=== PATIENT | male | born 1955 | race Caucasian/White ===

== ENCOUNTER 2021-08-05 04:39 | Emergency (ER) | payer OTHER ==
[2021-08-05 05:15] VITALS: BP 120/79; PULSE 70; TEMP 98.1; BMI 22.0
== END 2021-08-05 07:12 | disposition home or self-care (01) ==
LOC: JER 04:39
DX: S80.912A Unspecified superficial injury of left knee, initial encounter (principal); W01.0XXA Fall on same level from slipping, tripping and stumbling without subsequent striking against object, initial encounter
CPT/HCPCS: 73560-TC-LT-FY; 99283-25

== ENCOUNTER 2021-10-09 17:05 | Inpatient (IN) | payer OTHER ==
[2021-10-09 18:47] VITALS: BMI 21.2
[2021-10-09] MEDS ORDERED: ACETAMINOPHEN 325 MG TABLET (FP) PO PRN ×2 (21:22)
[2021-10-09] MEDS ORDERED: NICOTINE POLACRILEX 2 MG GUM BUC PRN (21:22)
[2021-10-09] MEDS ORDERED: DICYCLOMINE HCL 10 MG CAPSULE PO PRN (21:22)
[2021-10-09] MEDS ORDERED: LOPERAMIDE HCL 2 MG CAPSULE PO PRN (21:22)
[2021-10-09] MEDS ORDERED: IBUPROFEN 600 MG TABLET (FP) PO PRN (21:22)
[2021-10-09] MEDS ORDERED: guaiFENesin 200 MG/10 ML 10 ML UNIT-DOSE CUPS PO PRN (21:22)
[2021-10-09] MEDS ORDERED: P-EPHED 60MG/TRIPROLIDI 2.5MG TABLET PO PRN (21:22)
[2021-10-09] MEDS ORDERED: MAGNESIUM CITRATE 300 ML BOTTLE PO PRN (21:22)
[2021-10-09] MEDS ORDERED: LORazepam 1 MG TABLET PO PRN (21:22)
[2021-10-09] MEDS ORDERED: BENZOCAINE/MENTHOL (CHLORASEPTIC ) LOZENGE MM PRN (21:22)
[2021-10-09] MEDS ORDERED: BISMUTH SUBSALICYLATE 524 MG/30 ML PO PRN (21:22)
[2021-10-09] MEDS ORDERED: IBUPROFEN 400 MG TABLET (FP) PO PRN (21:22)
[2021-10-09] MEDS ORDERED: ONDANSETRON *ODT* 4 MG TABLET SL PRN (21:22)
[2021-10-09] MEDS ORDERED: MAGNESIUM HYDROX 2400MG/30ML ORAL SUSPENSION 30 ML CUP PO PRN (21:22)
[2021-10-09] MEDS ORDERED: MAG HYDROX/AL HYDROX/SIMETH 30 ML UNIT-DOSE CUP PO PRN (21:22)
[2021-10-09] MEDS: LORazepam 2 MG TABLET PO SCH (23:32)
[2021-10-09] MEDS: THIAMINE HCL 100 MG TABLET (FP) PO SCH (23:33)
[2021-10-09] MEDS: MELATONIN 5 MG TABLETS PO SCH (23:37)
[2021-10-10] MEDS: LORazepam 2 MG TABLET PO SCH ×4 (05:43→22:41)
[2021-10-10] MEDS: NICOTINE 21 MG/24 HOURS TOPICAL PATCH TD SCH (10:25)
[2021-10-10] MEDS: PRENATAL VITAMINS W/ FOLIC ACID TABLET (FP) PO SCH (10:25)
[2021-10-10] MEDS: METHOCARBAMOL 500 MG TABLET PO PRN (10:26)
[2021-10-10 15:37] LABS: BLOOD UREA NITROGEN 14.8 mg/dL (7-18); CALCIUM 8.9 mg/dL (8.5-10.1)
[2021-10-10 15:38] LABS: HEMATOCRIT 43.8 % (35.4-49); HEMOGLOBIN 14.8 GM/dL (11.7-16.9); MCHC 33.8 g/dl (32.0-35.9); MEAN CELL VOLUME 91.7 fl (80-96); MEAN PLT VOLUME 8.4 fl (7.5-11.1); PLATELET COUNT 322 10^3/uL (134-434); RBC 4.78 M/mm3 (4.00-5.60); RDW 14.6 % (11.9-15.9); WHITE BLOOD COUNT 8.2 K/mm3 (4.0-10.0)
[2021-10-10 15:40] LABS: CREATININE 0.9 mg/dL (0.55-1.3)
[2021-10-10 15:42] LABS: BILIRUBIN,TOTAL 0.6 mg/dL (0.2-1); TOT PROT 5.8 g/dl (6.4-8.2)
[2021-10-10] MEDS: THIAMINE HCL 100 MG TABLET (FP) PO SCH (22:41)
[2021-10-10] MEDS: MELATONIN 5 MG TABLETS PO SCH (22:41)
[2021-10-11] MEDS: LORazepam 1 MG TABLET PO SCH ×3 (05:31→17:55)
[2021-10-11] MEDS ORDERED: amLODIPine BESYLATE 5 MG TABLET (FP) PO SCH (10:00)
[2021-10-11] MEDS: METHOCARBAMOL 500 MG TABLET PO PRN (10:31)
[2021-10-11] MEDS: NICOTINE 21 MG/24 HOURS TOPICAL PATCH TD SCH (10:33)
[2021-10-11] MEDS: PRENATAL VITAMINS W/ FOLIC ACID TABLET (FP) PO SCH (10:35)
[2021-10-11 13:59] VITALS: PULSE 85
[2021-10-11 19:26] VITALS: BP 145/72; RESP 17; TEMP 97.5
[2021-10-12] MEDS ORDERED: LORazepam 0.5 MG TABLET PO PRN
[2021-10-12] MEDS ORDERED: LORazepam 0.5 MG TABLET PO SCH (05:00)
[2021-10-13] MEDS ORDERED: LORazepam 0.5 MG TABLET PO ONE (05:00)
== END 2021-10-11 19:35 | disposition left against medical advice (07) | DRG 894 ==
LOC: YASAS 17:05 → Y6N 21:34
PROVIDERS: ADMIT Allergy & Immunology; ATTEND Surgery
PROC: HZ2ZZZZ Detoxification Services for Substance Abuse Treatment (ICD-10-PCS; principal; 2021-10-09)
DX: F10.230 Alcohol dependence with withdrawal, uncomplicated (principal); F10.24 Alcohol dependence with alcohol-induced mood disorder; F25.9 Schizoaffective disorder, unspecified; F31.9 Bipolar disorder, unspecified; Z56.0 Unemployment, unspecified
CPT/HCPCS: 36415; 80053; 85027; 86780; 87811; 93005; 93010; C9803-CS; U0003; U0005

== ENCOUNTER 2022-03-25 11:06 | Observation (INO) | payer OTHER ==
[2022-03-25] MEDS ORDERED: ACETAMINOPHEN 325 MG TABLET (FP) PO ONE (11:46)
[2022-03-25] MEDS ORDERED: ACETAMINOPHEN 325 MG TABLET (FP) ONE ×2 (11:56→12:00)
[2022-03-25 16:40] LABS: BASO % 0.8 % (0-2.0); EOS % 3.6 % (0-4.5); HEMATOCRIT 45.7 % (35.4-49); HEMOGLOBIN 16.2 GM/dL (11.7-16.9); LYMPH % 20.8 % (8-40); MCHC 35.4 g/dl (32.0-35.9); MEAN CELL VOLUME 87.6 fl (80-96); MEAN PLT VOLUME 7.6 fl (7.5-11.1); MONO % 11.1 % (3.8-10.2); NEUT % 63.7 % (42.8-82.8); PLATELET COUNT 353 10^3/uL (134-434); RBC 5.21 M/mm3 (4.00-5.60); RDW 14.4 % (11.9-15.9); WHITE BLOOD COUNT 7.6 K/mm3 (4.0-10.0)
[2022-03-25 17:07] LABS: CALCIUM 9.3 mg/dL (8.5-10.1)
[2022-03-25 17:09] LABS: ALBUMIN 3.3 g/dl (3.4-5.0); BLOOD UREA NITROGEN 13.3 mg/dL (7-18)
[2022-03-25 17:11] LABS: CREATININE 0.8 mg/dL (0.55-1.3)
[2022-03-25 17:13] LABS: BILIRUBIN,TOTAL 0.6 mg/dL (0.2-1); TOT PROT 6.6 g/dl (6.4-8.2)
[2022-03-25] MEDS ORDERED: NICOTINE 14 MG/24 HOURS TOPICAL PATCH TD ONE (20:25)
[2022-03-25] MEDS: NICOTINE 14 MG/24 HOURS TOPICAL PATCH TD SCH (20:37)
[2022-03-25] MEDS: SODIUM CHLORIDE 1 GM TABLET PO SCH (23:01)
[2022-03-26 07:55] VITALS: BMI 21.2
[2022-03-26 09:40] LABS: BLOOD UREA NITROGEN 12.9 mg/dL (7-18); CALCIUM 9.1 mg/dL (8.5-10.1)
[2022-03-26 09:43] LABS: CREATININE 0.7 mg/dL (0.55-1.3)
[2022-03-26] MEDS: amLODIPine BESYLATE 5 MG TABLET (FP) PO SCH (10:34)
[2022-03-26] MEDS: NICOTINE 14 MG/24 HOURS TOPICAL PATCH TD SCH (10:34)
[2022-03-26] MEDS: TAMSULOSIN HCL 0.4 MG CAP PO SCH (10:34)
[2022-03-26] MEDS: SODIUM CHLORIDE 1 GM TABLET PO SCH ×2 (10:34→22:51)
[2022-03-26] MEDS: ENOXAPARIN NA (PORCINE) 40 MG/0.4 ML DISP.SYRIN SQ SCH (10:35)
[2022-03-27] MEDS: TAMSULOSIN HCL 0.4 MG CAP PO SCH (08:46)
[2022-03-27] MEDS: SODIUM CHLORIDE 1 GM TABLET PO SCH ×2 (09:16→21:11)
[2022-03-27] MEDS: amLODIPine BESYLATE 5 MG TABLET (FP) PO SCH (09:16)
[2022-03-27] MEDS: NICOTINE 14 MG/24 HOURS TOPICAL PATCH TD SCH (09:17)
[2022-03-27] MEDS: ENOXAPARIN NA (PORCINE) 40 MG/0.4 ML DISP.SYRIN SQ SCH (09:17)
[2022-03-28] MEDS: TAMSULOSIN HCL 0.4 MG CAP PO SCH (09:04)
[2022-03-28] MEDS: amLODIPine BESYLATE 5 MG TABLET (FP) PO SCH (09:04)
[2022-03-28] MEDS: SODIUM CHLORIDE 1 GM TABLET PO SCH ×2 (09:05→22:26)
[2022-03-28] MEDS: ENOXAPARIN NA (PORCINE) 40 MG/0.4 ML DISP.SYRIN SQ SCH (09:05)
[2022-03-28] MEDS: NICOTINE 14 MG/24 HOURS TOPICAL PATCH TD SCH (09:05)
[2022-03-29] MEDS: TAMSULOSIN HCL 0.4 MG CAP PO SCH (08:29)
[2022-03-29] MEDS: SODIUM CHLORIDE 1 GM TABLET PO SCH (09:35)
[2022-03-29] MEDS: NICOTINE 14 MG/24 HOURS TOPICAL PATCH TD SCH (09:35)
[2022-03-29] MEDS: amLODIPine BESYLATE 5 MG TABLET (FP) PO SCH (09:35)
[2022-03-29] MEDS: ENOXAPARIN NA (PORCINE) 40 MG/0.4 ML DISP.SYRIN SQ SCH (09:35)
[2022-03-29 15:37] VITALS: BP 109/69; PULSE 87; RESP 18; TEMP 98.7
== END 2022-03-29 18:53 ==
LOC: JER 11:06 → UNDOADMOB 14:50 → JERBED 14:50 → INTOOBSV 14:50 → J8W 03-26 00:11 → JERBED 03-26 00:11 → J8W 03-26 09:37 → JERBED 03-26 09:37
PROVIDERS: ADMIT Internal Medicine; ATTEND Internal Medicine
PROC: 3E023GC Introduction of Other Therapeutic Substance into Muscle, Percutaneous Approach (ICD-10-PCS; principal; 2022-03-26)
DX: R26.2 Difficulty in walking, not elsewhere classified (principal); W18.39XA Other fall on same level, initial encounter; Y92.009 Unspecified place in unspecified non-institutional (private) residence as the place of occurrence of the external cause; Y93.89 Activity, other specified; I10 Essential (primary) hypertension; E87.1 Hypo-osmolality and hyponatremia; F25.9 Schizoaffective disorder, unspecified; F19.10 Other psychoactive substance abuse, uncomplicated; F31.9 Bipolar disorder, unspecified
CPT/HCPCS: 0241U-QW; 36415; 70450-TC; 71045-TC-FY; 72125-TC; 73130-TC-RT-FY; 80048; 80053; 85025; 93005; 93010; 96372; 97116-GP; 97161-GP; 99285-25; G0378